=== PATIENT | female | born 1980 | race African-American/Black ===

== ENCOUNTER 2020-03-30 04:33 | Day surgery (SDC) | payer OTHER ==
[2020-03-29 09:08] VITALS: BMI 30.3
[2020-03-30] MEDS ORDERED: LIDOCAINE HCL 1%, 10 MG/ML (20ML VIAL) ONE (12:02)
[2020-03-30] MEDS ORDERED: ceFAZolin SODIUM 1 GM VIAL ONE ×2 (12:22→14:32)
[2020-03-30] MEDS ORDERED: LIDOCAINE HCL/PF 2% SDV 5ML VIAL ONE ×2 (12:22→13:10)
[2020-03-30] MEDS ORDERED: PROPOFOL 20 ML ONE ×3 (12:22→13:34)
[2020-03-30] MEDS ORDERED: MIDAZOLAM HCL 2 MG/2 ML SINGLE DOSE VIAL ONE (12:25)
[2020-03-30] MEDS ORDERED: KETOROLAC TROMETHAMINE 30 MG/1 ML VIAL ONE (13:10)
[2020-03-30] MEDS ORDERED: DEXAMETHASONE SOD PHOSPHATE 4 MG/1 ML VIAL ONE (13:10)
[2020-03-30] MEDS ORDERED: LIDOCAINE HCL 1%, 10 MG/ML (20ML VIAL) INF ONE (13:13)
[2020-03-30] MEDS ORDERED: ONDANSETRON 4 MG/2 ML VIAL IVPUSH PRN (13:44)
[2020-03-30] MEDS ORDERED: oxyCODONE HCL 5 MG TABLET PO PRN ×2 (13:44)
[2020-03-30] MEDS ORDERED: LACTATED RINGERS SOLUTION 1,000 ML IV SCH (13:45)
--- NOTE | 2020-03-30 14:26 | OP ---
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 PROCEDURE: Right breast ultrasound-guided wire localized lumpectomy. SURGEON: Amanda Kaba MD ANESTHESIA: General. ESTIMATED BLOOD LOSS: Minimal. COMPLICATION: None. DISPOSITION: Stable. INDICATION FOR PROCEDURE: Patient had a finding on a mammogram and ultrasound that prompted a needle biopsy that showed a fibroadenoma with lobular carcinoma in situ in the right breast 1 o'clock location 5 cm from the nipple. My recommendation was an excision to make sure there was no further upgrade in the lesion. The procedure was discussed with all the questions answered. PROCEDURE IN DETAIL: Patient was brought to [facility] [place] in [place], taken into the operating room and after induction of general anesthesia the right breast was prepped and draped in the usual sterile fashion. An intraoperative ultrasound was performed to localize the lesion in the right 1 o'clock location 5 cm from the nipple with a Kopans wire using 1% lidocaine without epinephrine. The right breast was then reprepped and redraped. A periareolar incision was made in the upper inner right breast and the wire was used as a guide to get down to the area of interest which was excised en bloc, tagged with a long stitch lateral, short stitch superior, sent to Pathology for permanent section. Hemostasis assured with electrocautery. The parenchyma was approximated with interrupted 2-0 Vicryl, skin approximated with interrupted 3-0 Vicryl and running 4-0 Prolene. A sterile dressing with Tegaderm and 4 x 4's applied. She tolerated the procedure well, was extubated on the operating room table, taken to recovery in good condition. AMANDA KABA M.D. [id number]
[2020-03-30 16:36] VITALS: BP 140/90; PULSE 64; TEMP 97.3
--- NOTE | 2020-04-02 16:06 | PATH ---
Surgical Pathology Report Patient Name: MILKA MERRITT [facility]. Rec. #: [id number] /Age/Gender: 1980 (Age: 39) / F Account: [id number] Location: [facility] SURGICAL Taken: 03/30/2020 Received: 03/31/2020 Reported: 04/02/2020 Physicians: Amanda Cole M.D. Specimen(s) Received RIGHT BREAST LUMPECTOMY - LONG STITCH LATERAL SHORT STITCH SUPERIOR Clinical History Fibroadenoma and lobular carcinoma in situ Final Diagnosis RIGHT BREAST LUMPECTOMY: BREAST TISSUE WITH BENIGN PHYLLODES TUMOR, MEASURING 0.7 CM IN GREATEST DIMENSION. LOBULAR CARCINOMA IN SITU (LCIS), CLASSICAL TYPE, ASSOCIATED WITH THE PHYLLODES TUMOR. MARGINS ARE NEGATIVE FOR PHYLLODES TUMOR. THE TUMOR IS AT 2 MM FROM THE CLOSEST MARGIN (DEEP MARGIN). REACTIVE CHANGES AT PRIOR BIOPSY SITE IDENTIFIED. Comment: The tumor shows focal leaflike structure, mildly increased stromal cellularity with mild nuclear atypia. Stromal overgrowth is absent. Stromal mitoses are 4 mitoses per 10 HPF. 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 Focal lobular carcinoma in situ is seen within the tumor. Immunohistochemical stain (block 3, 4, and 5) performed and interpreted at [facility] shows the atypical proliferative epithelial cells are negative for E-cadherin, supports the diagnosis of lobular carcinoma in situ. Positive and negative controls (internal if applicable) show appropriate results. Intradepartmental case reviewed with concordance of diagnosis. Electronically Signed Ophelia Nguyen M.D. Gross Description ---- Received in formalin, labeled "right breast lumpectomy," is a 4.0 x 2.9 x 2.2 cm. vizcaino-yellow, irregular, portion of fibroadipose tissue with a needle localization wire present. There is a short suture marking the superior aspect and a long suture marking the lateral aspect, per the surgeon. There is no skin or nipple present. The specimen is inked as follows: superior and lateral blue; inferior green; medial yellow; anterior red; deep black. The specimen is serially sectioned from lateral to medial. Sectioning reveals a 0.8 x 0.7 x 0.6 cm vizcaino, well circumscribed fibrous nodule. The remaining breast parenchyma displays foci of white fibrous tissue. The specimen is entirely and sequentially submitted in 9 cassettes with the lateral margin in cassette 1, the medial margin in cassette 9 and the nodule in cassettes 4-5. Total formalin fixation time: Approximately 29 hours. 03/31/2020 [facility]03/31/2020
== END 2020-03-30 16:20 | disposition home or self-care (01) ==
LOC: JASU-SURG 04:33
PROVIDERS: ATTEND Surgery
PROC: 0HBT0ZZ Excision of Right Breast, Open Approach (ICD-10-PCS; principal; 2020-03-30 12:00)
DX: D05.01 Lobular carcinoma in situ of right breast (principal); D24.1 Benign neoplasm of right breast
CPT/HCPCS: 84703; 88307-TC; 88342-TC; 94760